=== PATIENT | female | born 1975 | race Caucasian/White ===

== ENCOUNTER 2024-08-11 10:12 | Outpatient (REF) | payer BC, SELFPAY | END 2024-08-11 10:13 | disposition home or self-care (01) | LOC: HO.LAB 10:12 | PROVIDERS: PCP Internal Medicine; Visit Provider Physician Assistant | DX: N30.01 Acute cystitis with hematuria (principal) | CPT/HCPCS: 81003; 87086; 87088; 87186 ==

== ENCOUNTER 2024-08-11 10:12 | Outpatient (AMB) | payer BC, SELFPAY ==
--- NOTE | 2024-08-11 11:01 | AM.OFFWIN_ITS ---
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 Intake Note: Pt is here today c/o ?UTI and pain kidney area Patient Tobacco Use Status: Never used Tobacco Allergies No Known Allergies Allergy (Verified 08/11/24 11:10) HPI HPI Comments History of Present Illness Details She presents to office with UTi concern She states 1 week of dysuria Yesterday started with R flank pain and worsening now on left She denies documented fever or chills No medicine use + dysuria, frequency and urgency + slight blood in urine but also has kaycee e vaginal spotting x 2 weeks Pubic pressure without sharp abdominal pain Still producing urine No CP or SOB PFSH Social History Patient Tobacco Use Status: Never used Tobacco Review of Systems Const Denies chills and Denies fever(s) Card Denies chest pain and Denies dyspnea Resp Denies cough and Denies dyspnea GI Denies abdominal pain Reports hematuria (but also vag spotting), Reports dysuria, Reports pelvic pain, Denies urinary incontinence and Reports urinary urgency Musc Reports back pain Skin/Breast Denies rash Physical Exam Vital Signs: Last Vital Signs Temp 97.9 F 08/11/24 11:05 Pulse 110 H 08/11/24 11:05 BP 108/80 08/11/24 11:05 Pulse Ox 98 08/11/24 11:05 Oxygen Delivery Method Room Air 08/11/24 11:05 BMI result Body Mass Index 42.6 General: Non-toxic, NAD. Speaking full sentences. Skin: Warm dry throughout Eye: EOMI Respiratory: CTA bilaterally. No wheezes, rales or rhonchi Cardiac: RRR. No murmur Abdominal: BS present. Non-tender to palpation; no rebound. No CVAT MSK:. Slight ttp R lumbar paravertebral muscles. Full ROM extremities. Neurology: Alert. No aphasia or facial droop. Gait without abnormality Psych: Good mood and affect Results AMB Urinalysis, Automated UA Leukoctes 70 Gabe/uL Last Edit by Judy Lin CMA on 08/11/24 11:16 UA Nitrite Negative Last Edit by Judy Lin CMA on 08/11/24 11:16 UA Urobilinogen 0.2 mg/dL Last Edit by Judy Lin CMA on 08/11/24 11:16 UA Protein 30 mg/dL Last Edit by Judy Lin CMA on 08/11/24 11:16 UA pH 6.0 Last Edit by Judy Lin CMA on 08/11/24 11:16 UA Blood 200 Khurram/uL Last Edit by Judy Lin CMA on 08/11/24 11:16 UA Specific [place] 1.015 Last Edit by Judy Lin CMA on 08/11/24 11:16 UA Ketone Negative Last Edit by Judy Lin CMA on 08/11/24 11:16 UA Bilirubin 0 mg/dL Last Edit by Judy Lin CMA on 08/11/24 11:16 UA Glucose 0 mg/dL Last Edit by Judy Lin CMA on 08/11/24 11:16 Results Reviewed Results Reviewed: Laboratory Last Values Urine pH (Auto) 6.0 08/11/24 11:02 Specific [place] (Auto) 1.015 08/11/24 11:02 Urine Protein (Auto) 30 mg/dL 08/11/24 11:02 Glucose (UA)(Auto) 0 mg/dL 08/11/24 11:02 Urine Ketones (Auto) Negative 08/11/24 11:02 Urine Blood (Auto) 200 Khurram/uL 08/11/24 11:02 Urine Nitrite (Auto) Negative 08/11/24 11:02 Urine Bilirubin (Auto) 0 mg/dL 08/11/24 11:02 Urine Urobilinogen (Auto) 0.2 mg/dL 08/11/24 11:02 Leukocyte Esterase (Auto) 70 Gabe/uL 08/11/24 11:02 Assessment & Plan Assessment & Plan (1) Urinary tract infection: Code(s): N39.0 - Urinary tract infection, site not specified Qualifiers: Urinary tract infection type: acute cystitis Hematuria presence: with hematuria Qualified Code(s): N30.01 - Acute cystitis with hematuria Plan: Patient seen and evaluated. U/A: + leuks, and blood. No nitrates. Culrure sent Keflex to pharmacy Increase fluids Patient gave verbal understanding and had no additional questions or concerns at time of discharge All questions answered Orders: Orders Urine Culture Today Tabatha Zelaya PA-C N39.0 - Urinary tract infection, site not specified AMB Urinalysis Automated Today Zoya Lewis PA-C Z13.9 - Encounter for screening, unspecified Medications: New cephalexin 500 mg PO BID 14 caps 0RF Tabatha Zelaya PA-C Coding Level of Care Code Est Pt Level 3 (41919) Diagnoses Acute cystitis with hematuria N30.01 Urinary tract infection type: acute cystitis Hematuria presence: with hematuria
[2024-08-11 11:05] VITALS: BP 108/80; PULSE 110; TEMP 36.6; O2SAT 98; BMI 42.6
== END 2024-08-11 11:33 | disposition home or self-care (01) ==
PROVIDERS: PCP Internal Medicine; Visit Provider Physician Assistant
DX: N30.01 Acute cystitis with hematuria (principal); Z13.9 Encounter for screening, unspecified

== ENCOUNTER 2024-09-18 14:46 | Outpatient (AMB) | payer BC, SELFPAY ==
--- NOTE | 2024-09-18 14:53 | MHC.PC.OV ---
Vital Signs 09/18/24 14:59 Height 5 ft 7 in Weight 272 lb BMI 42.6 BP 120/88 Blood Pressure Location Rt brachial Position Sitting Respiration 16 Pulse 94 Pulse Source Pulse Oximeter Pulse Oximetry (%) 99 Oxygen Delivery Method Room Air Intake Visit Reasons: misael /diabetes Intake Note: New patient visit. Has been off metformin for 6 months. 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 Allergies No Known Allergies Allergy (Verified 08/11/24 11:10) Medication List - Last Reconciled 09/18/24 by MD Juanis Batista (tirzepatide) 2.5 mg (0.5 mL) subcut QWEEK NS Tobacco use date assessed: 09/18/24 Dental Screening Dental Screen Date: 09/18/24 Did you have a dental visit in the last 12 months?: No Did you have a dental problem in the last 6 months where you did not have access to dental care?: No Was dental information given to patient?: Patient declined HPI HPI Comments History of Present Illness Details 48 year old female with a past medical history of kidney stones, diabetes presenting for follow up/reestablish Urology: Was following with Dr Navarro Diabetes: On metformin. Some GI upset-stopped ~6 months ago. Due for A1C Colonoscopy at 45-7 year repeat recommended given family history Mammogram Jul 2024 ROS CONSTITUTIONAL: Denies weight loss, fever and chills. HEENT: Denies changes in vision and hearing. RESPIRATORY: Denies SOB and cough. CV: Denies palpitations and CP GI: Denies abdominal pain, nausea, vomiting and diarrhea. : Denies dysuria and urinary frequency. MSK: Denies new myalgia and joint pain. SKIN: Denies rash and pruritus. NEUROLOGICAL: Denies headache PSYCHIATRIC: Denies recent changes in mood. PHYSICAL EXAM: GENERAL: Alert and oriented x 3. NAD EYES: EOMI. Anicteric. HENT: Moist mucous membranes. No scleral icterus. No cervical lymphadenopathy. LUNGS: Clear to auscultation bilaterally. CARDIOVASCULAR: Regular rate and rhythm. No murmur. No JVD. ABDOMEN: Soft, non-tender +bs EXTREMITIES: No edema. Non-tender. SKIN: No rashes or lesions. Warm. NEUROLOGIC: No focal neurological deficits. CN II-XII grossly intact PSYCHIATRIC: Cooperative. Appropriate mood and affect [facility] Surgical History H/O section H/O colonoscopy Family History Paternal Uncle Alcoholic Schizophrenia Mother Diabetes Brother Colon cancer Other Substance abuse Social History Housing: House Patient Tobacco Use Status: Never used Tobacco e-Cigarette/Vaping Use: Never Used Second Hand Smoke Exposure: No service: No Current occupational status: employed Current occupation: Speech language pathologist Current occupational exposures/hazards: No Cognitive needs: No Hearing needs: No Vision needs: No Questionnaire PHQ-9 Over the last 2 weeks, how often have you been bothered by any of the following problems? 1. Little interest or pleasure in doing things: not at all 2. Feeling down, depressed, or hopeless: not at all 3. Trouble falling or staying asleep, or sleeping too much: not at all 4. Feeling tired or having little energy: not at all 5. Poor appetite or overeating: not at all 6. Feeling bad about yourself - or that you are a failure or have let yourself or your family down: not at all 7. Trouble concentrating on things, such as reading the newspaper or watching television: not at all 8. Moving or speaking so slowly that other people could have noticed. Or the opposite - being so fidgety or restless that you have been moving around a lot more than usual: not at all 9. Thoughts that you would be better off or of hurting yourself in some way: not at all Total score: 0 Depression Screening Interpretation: Negative Depression Screening Done: Yes 63807 - PHQ-9 Billing: Yes Source: Developed by Drs. Chi Vigil, Vivian Rutherford, Lawrence Lin and colleagues, with an educational mindi from [employer]. Thrive Questionnaire Date Thrive assessed: 09/18/24 I am a: Patient What is your living situation today?: I have a steady place to live Within the past 12 months, did the food you bought not last and you didn't have the money to get more?: Never true Within the past 12 months, did you worry whether your food would run out before you got money to buy more?: Never true Do you have trouble paying for medicines?: No Do you have trouble getting transportation to medical appointments?: No Do you have trouble paying your heating and electricity bill?: No Do you have trouble taking care of your child, family member or friend?: No Do you have trouble with day-to-day activities such as bathing, preparing meals, shopping, managing finances, etc.?: No Are you currently unemployed and looking for a job?: No Are you interested in more education?: No Please select the resources that you would like help with: None Currently or been in a relationship where the following occur: No concerns reported THRIVE Score: 0 AUDIT C Alcohol Use Questionnaire (AUDIT-C) 1. How often do you have a drink containing alcohol?: 2-4 times a month 2. How many drinks containing alcohol do you have on a typical day when you are drinking?: 3 or 4 3. How often do you have six or more drinks on one occasion?: Less than monthly Total Score: 4 HOWARD-7 AMB Questionnaire HOWARD-7 Date HOWARD - 7 assessed: 09/18/24 Feeling nervous, anxious, or on edge: 0 = Not at all Not being able to stop or control worryin = Not at all Worrying too much about different things: 1 = Several days Trouble relaxin = Not at all Being so restless that it is hard to sit still: 0 = Not at all Becoming easily annoyed or irritable: 1 = Several days Feeling afraid as if something awful might happen: 0 = Not at all Total HOWARD-7 score (0-4 normal; 5-9 mild; 10-14 moderate; 15-21 severe): 2 Source: Developed by Drs. Chi Vigil, Vivian Rutherford, Lawrence Lin and colleagues, with an educational mindi from [employer]. HOWARD-7 Assessment Billing HOWARD-7 Assessment Tool: HOWARD-7 Assessment 21202 Physical exam (Primary Care) Vital Signs: Last Vital Signs Pulse 94 09/18/24 14:59 Resp 16 09/18/24 14:59 BP 120/88 09/18/24 14:59 Pulse Ox 99 09/18/24 14:59 Oxygen Delivery Method Room Air 02/14/25 14:59 BMI result Body Mass Index 42.6 Tobacco/Smoking Status: Tobacco use Status Tobacco use date assessed 09/18/24 09/18/24 15:02 Patient Tobacco Use Status Never used Tobacco 09/18/24 15:02 e-Cigarette/Vaping Use Never Used 09/18/24 15:02 PHQ-9: PHQ-9 Score PHQ-9: Total score 0 09/18/24 15:02 Depression Screening Interpretation: Negative Currently or been in a relationship where the following occur: No concerns reported Coding Level of Care Code Est Pt Level 4 (81472) Complex EM visit Add On G2211 Diagnoses Type 2 diabetes mellitus with hyperglycemia, without long-term current use of insulin E11.65 Diabetes mellitus type: type 2 Diabetes mellitus termite control technician insulin use: without termite control technician use Diabetes mellitus complication status: with hyperglycemia Additional Codes HOWARD-7 Assessment Billing - HOWARD-7 Assessment Tool: HOWARD-7 Assessment 75000 ([id number]) PHQ-9 - 01980 - PHQ-9 Billing: Yes ([id number]) Assessment & Plan Assessment & Plan (1) Diabetes: Code(s): E11.9 - Type 2 diabetes mellitus without complications Category: Medical Qualifiers: Diabetes mellitus type: type 2 Diabetes mellitus care home insulin use: without termite control technician use Diabetes mellitus complication status: with hyperglycemia Qualified Code(s): E11.65 - Type 2 diabetes mellitus with hyperglycemia Plan: A1C is due SE from metformin Would recommend GLP based on diabetes and obesity Orders: Orders Comprehensive Met. Panel Today E11.9 - Type 2 diabetes mellitus without complications Complete Blood Count Auto Diff Today E11.9 - Type 2 diabetes mellitus without complications Hemoglobin A1c Today E11.9 - Type 2 diabetes mellitus without complications Hemoglobin A1c 3 Months E11.9 - Type 2 diabetes mellitus without complications Comprehensive Met. Panel 3 Months E11.9 - Type 2 diabetes mellitus without complications Lipid Panel 3 Months E11.9 - Type 2 diabetes mellitus without complications Medications: New Mounjaro (tirzepatide) for 4 weeks 2.5 mg (0.5 mL) subcut QWEEK 2 mL 1RF NS E11.9 - Type 2 diabetes mellitus without complications
[2024-09-18 14:59] VITALS: BP 120/88; PULSE 94; RESP 16; O2SAT 99; BMI 42.6
== END 2024-09-18 15:27 | disposition home or self-care (01) ==
PROVIDERS: PCP Internal Medicine; Visit Provider Internal Medicine
DX: E11.65 Type 2 diabetes mellitus with hyperglycemia (principal)

== ENCOUNTER → 2024-09-18 14:46 | Outpatient (BNVA) | payer BC, SELFPAY | PROVIDERS: PCP Internal Medicine; Visit Provider Internal Medicine | DX: E11.65 Type 2 diabetes mellitus with hyperglycemia (principal); Z79.84 Long term (current) use of oral hypoglycemic drugs | CPT/HCPCS: 96127 ==

== ENCOUNTER 2024-09-18 15:31 | Outpatient (REF) | payer BC, SELFPAY ==
[2024-09-18 17:55] LABS: MANUAL DIFF FLAG NO
[2024-09-18 17:59] LABS: Basophils Percent Auto 0.2 % (0-2); Eosinophils Absolute Auto 0.1 X10*3/uL (0.0-0.4); Eosinophils Percent Auto 1.4 % (0-4); Hematocrit 40.5 % (37.0-47.0); Hemoglobin 13.1 g/dl (12.0-16.0); Imm Gran Abs Auto 0.02 X10*3/uL (0.00-0.03); Imm Gran Pct Auto 0.2 % (0.0-0.4); Lymphocytes Absolute Auto 4.2 X10*3/uL (1.2-4.9); Lymphocytes Percent Auto 41.9 % (20-40); Mean Corpuscular HGB Conc 32.3 g/dl (31.0-35.0); Mean Corpuscular Hemoglobin 27.5 pg (27.0-33.0); Mean Corpuscular Volume 85.1 fL (80.0-98.0); Mean Platelet Volume 9.9 fL (9.4-12.3); Monocytes Absolute Auto 0.4 X10*3/uL (0.1-1.2); Monocytes Percent Auto 4.4 % (2-11); Neutrophils Absolute Auto 5.2 x10*3/uL (2.0-8.3); Neutrophils Percent Auto 51.9 % (45-73); Platelet Count 282 X10*3/uL (160-400); Red Blood Count 4.76 X10*6/uL (4.20-5.50); Red Cell Distribution Width 13.5 % (11.0-16.0)
[2024-09-18 18:09] LABS: Estimated Average Glucose 140 mg/dL; Hemoglobin A1C 163.4576 umol/L; Hemoglobin A1c % 6.5 % (<6.0); Total Hemoglobin (HGBA1C) 3413.9668 umol/L
[2024-09-18 18:13] LABS: Alanine Aminotransferase 17 U/L (0-31); Albumin Level 3.8 g/dL (3.5-5.0); Alkaline Phosphatase 94 U/L (39-117); Anion Gap 10 (12-20); Aspartate Amino Transferase 23 U/L (5-31); Bilirubin Total 0.3 mg/dL (0.0-1.0); Blood Urea Nitrogen 10 mg/dL (9-16); Calcium 9.7 mg/dL (8.4-10.2); Carbon Dioxide 23 mmol/L (22-29); Chloride 107 mmol/L (96-108); Estimated Glomerular Filt Rate > 60; Glucose Random 87 mg/dL (60-115); Potassium 3.9 mmol/L (3.3-5.1); Sodium 136 mmol/L (135-145)
== END 2024-09-18 15:32 | disposition home or self-care (01) ==
LOC: HO.WFDLDS 15:31
PROVIDERS: Visit Provider Internal Medicine
DX: E11.9 Type 2 diabetes mellitus without complications (principal)
CPT/HCPCS: 36415; 80053; 83036; 85025

== ENCOUNTER 2025-02-19 10:15 | Outpatient (REF) | payer BC, SELFPAY ==
[2025-02-19 12:09] LABS: Alanine Aminotransferase 15 U/L (0-31); Albumin Level 3.9 g/dL (3.5-5.0); Alkaline Phosphatase 78 U/L (39-117); Anion Gap 12 (12-20); Aspartate Amino Transferase 24 U/L (5-31); Blood Urea Nitrogen 11 mg/dL (9-16); Calcium 9.3 mg/dL (8.4-10.2); Carbon Dioxide 27 mmol/L (22-29); Chloride 109 mmol/L (96-108); Cholesterol 197 mg/dL (<200); Estimated Glomerular Filt Rate > 60; HDL Cholesterol 31 mg/dL (>40); Potassium 3.9 mmol/L (3.3-5.1); Sodium 144 mmol/L (135-145); Total Protein 7.2 g/dL (6.5-8.0); Triglycerides 112 mg/dL (<150)
[2025-02-19 12:13] LABS: Hemoglobin A1C 170.8125 umol/L; Total Hemoglobin (HGBA1C) 5101.8813 umol/L
== END 2025-02-19 10:16 | disposition home or self-care (01) ==
LOC: HO.WFDLDS 10:15
PROVIDERS: Visit Provider Internal Medicine
DX: E11.9 Type 2 diabetes mellitus without complications (principal)
CPT/HCPCS: 36415; 80053; 80061; 83036

== ENCOUNTER 2025-04-27 15:41 | Outpatient (AMB) | payer BC, SELFPAY ==
[2025-04-27 15:53] VITALS: BP 116/84; PULSE 86; RESP 16; O2SAT 96; BMI 35.5
--- NOTE | 2025-04-27 15:53 | A.OFFPC_ITS ---
Vital Signs 04/27/25 15:53 Height 5 ft 7 in Weight 227 lb BMI 35.5 BP 116/84 Blood Pressure Location Rt brachial Position Sitting Respiration 16 Pulse 86 Pulse Source Pulse Oximeter Pulse Oximetry (%) 96 Oxygen Delivery Method Room Air Intake Visit Reasons: diabetes follow up Intake Note: Diabetes follow up Allergies No Known Allergies Allergy (Verified 04/27/25 15:55) Tobacco use date assessed: 04/27/25 Dental Screening Dental Screen Date: 09/18/24 HPI HPI Comments History of Present Illness Details 49 year old female with a past medical h istory of kidney stones, diabetes presenting for follow up Urology: Was following with Dr Navarro Diabetes: Tolerating mounjaro-A1C and weight are down, 5.2%. A1C Previously on metformin had GI upset-stopped ~6 months ago. Colonoscopy at 45-7 year repeat recommended given family history Mammogram Jul 2024 ROS CONSTITUTIONAL: Denies weight loss, fever and chills. HEENT: Denies changes in vision and hearing. RESPIRATORY: Denies SOB and cough. CV: Denies palpitations and CP GI: Denies abdominal pain, nausea, vomiting and diarrhea. : Denies dysuria and urinary frequency. MSK: Denies new myalgia and joint pain. SKIN: Denies rash and pruritus. NEUROLOGICAL: Denies headache PSYCHIATRIC: Denies recent changes in mood. PHYSICAL EXAM: GENERAL: Alert and oriented x 3. NAD EYES: EOMI. Anicteric. HENT: Moist mucous membranes. No scleral icterus. No cervical lymphadenopathy. LUNGS: Clear to auscultation bilaterally. CARDIOVASCULAR: Regular rate and rhythm. No murmur. No JVD. ABDOMEN: Soft, non-tender +bs EXTREMITIES: No edema. Non-tender. SKIN: No rashes or lesions. Warm. NEUROLOGIC: No focal neurological deficits. CN II-XII grossly intact PSYCHIATRIC: Cooperative. Appropriate mood and affect [facility] Surgical History H/O section H/O colonoscopy Family History Paternal Uncle Alcoholic Schizophrenia Mother Diabetes Brother Colon cancer Other Substance abuse Social History Housing: House Patient Tobacco Use Status: Never used Tobacco e-Cigarette/Vaping Use: Never Used Second Hand Smoke Exposure: No service: No Current occupational status: employed and unemployed Current occupation: Speech language pathologist Current occupational exposures/hazards: No Cognitive needs: No Hearing needs: No Vision needs: No Questionnaire Thrive Questionnaire Date Thrive assessed: 09/18/24 I am a: Patient What is your living situation today?: I have a steady place to live Within the past 12 months, did the food you bought not last and you didn't have the money to get more?: Never true Within the past 12 months, did you worry whether your food would run out before you got money to buy more?: Never true Do you have trouble paying for medicines?: No Do you have trouble getting transportation to medical appointments?: No Do you have trouble paying your heating and electricity bill?: No Do you have trouble taking care of your child, family member or friend?: No Do you have trouble with day-to-day activities such as bathing, preparing meals, shopping, managing finances, etc.?: No Are you currently unemployed and looking for a job?: No Are you interested in more education?: No Please select the resources that you would like help with: None Currently or been in a relationship where the following occur: No concerns reported THRIVE Score: 0 AUDIT C Alcohol Use Questionnaire (AUDIT-C) 1. How often do you have a drink containing alcohol?: Monthly or less 2. How many drinks containing alcohol do you have on a typical day when you are drinking?: 1 or 2 3. How often do you have six or more drinks on one occasion?: Never Total Score: 1 HOWARD-7 AMB Questionnaire HOWARD-7 Date HOWARD - 7 assessed: 09/18/24 Source: Developed by Drs. Chi Vigil, Vivian Rutherford, Lawrence Lin and colleagues, with an educational mindi from [employer]. Physical exam (Primary Care) Vital Signs: Last Vital Signs Pulse 86 04/27/25 15:53 Resp 16 04/27/25 15:53 BP 116/84 04/27/25 15:53 Pulse Ox 96 04/27/25 15:53 Oxygen Delivery Method Room Air 04/27/25 15:53 BMI result Body Mass Index 35.5 Tobacco/Smoking Status: Tobacco use Status Tobacco use date assessed 04/27/25 04/27/25 16:00 Patient Tobacco Use Status Never used Tobacco 04/27/25 16:00 e-Cigarette/Vaping Use Never Used 04/27/25 16:00 Thrive Assessment: Date of Thrive Assessment Date Thrive assessed 09/18/24 04/27/25 16:00 Currently or been in a relationship where the following occur: No concerns reported Results AMB Hemoglobin A1c AMB Hemoglobin A1c 5.2 % Last Edit by Lisa Morgan CMA on 04/27/25 16:06 Results Reviewed Results Reviewed: Laboratory Last Values Hgb A1c (Clinic) 5.2 % (4.0-6.0) 04/27/25 16:02 Coding Level of Care Code Est Pt Level 4 (42407) Diagnoses Type 2 diabetes mellitus with hyperglycemia, without long-term current use of insulin E11.65 Diabetes mellitus type: type 2 Diabetes mellitus java android developer insulin use: without java android developer use Diabetes mellitus complication status: with hyperglycemia Assessment & Plan Assessment & Plan (1) Diabetes: Code(s): E11.9 - Type 2 diabetes mellitus without complications Category: Medical Qualifiers: Diabetes mellitus type: type 2 Diabetes mellitus halfway insulin use: without halfway use Diabetes mellitus complication status: with hyperglycemia Qualified Code(s): E11.65 - Type 2 diabetes mellitus with hyperglycemia Plan Diabetes is well controlled. congratulated on interval improvement She can increase mounjaro 7.5 as her appetite and glucose have increased in the past few weeks Annual eye exams recommended She can follow up in six months or sooner as needed Orders: Orders Lipid Panel 04/27/25 E11.65 - Type 2 diabetes mellitus with hyperglycemia Comprehensive Met. Panel 04/27/25 E11.65 - Type 2 diabetes mellitus with hyperglycemia AMB Hemoglobin A1c 04/27/25 E11.65 - Type 2 diabetes mellitus with hyperglycemia Hemoglobin A1c 04/27/25 E11.65 - Type 2 diabetes mellitus with hyperglycemia TSH reflex Free T4 04/27/25 E11.65 - Type 2 diabetes mellitus with hyperglycemia Medications: New Mounjaro (tirzepatide) 7.5 mg (0.5 mL) subcut QWEEK 6 mL 3RF NS E11.65 - Type 2 diabetes mellitus with hyperglycemia Discontinued Mounjaro (tirzepatide) Discontinued Reason: Doctor's Order 5 mg (0.5 mL) subcut QWEEK 6 mL 3RF NS
== END 2025-04-27 16:14 | disposition home or self-care (01) ==
LOC: HO.HMCFM 15:42
PROVIDERS: PCP Internal Medicine; Visit Provider Internal Medicine
DX: E11.65 Type 2 diabetes mellitus with hyperglycemia (principal)

== ENCOUNTER → 2025-04-27 15:41 | Outpatient (BNVA) | payer BC, SELFPAY | PROVIDERS: PCP Internal Medicine; Visit Provider Internal Medicine | DX: E11.65 Type 2 diabetes mellitus with hyperglycemia (principal); Z79.85 Long-term (current) use of injectable non-insulin antidiabetic drugs | CPT/HCPCS: 83036 ==